=== PATIENT | female | born 1970 | race African-American/Black ===

== ENCOUNTER 2020-05-13 15:26 | Emergency (ER) | payer MEDICAID, OTHER ==
[~2020-05-13] VITALS: Ht 170.2 cm; Wt 84.1 kg
[~2020-05-13 15:26] MED LIST: LEVAHFA IH
[2020-05-13 15:28] VITALS: BP 126/76
[2020-05-13] MEDS ORDERED: ALBUTEROL SULFATE HFA 90 MCG/PUFF 8 GM INHALER IH ONE (15:45)
== END 2020-05-13 16:08 | disposition home or self-care (01) ==
LOC: EMS 15:26
DX: J45.909 Unspecified asthma, uncomplicated (principal)
CPT/HCPCS: 94640; J3535